=== PATIENT | male | born 1975 | race Asian ===

== ENCOUNTER 2017-07-13 12:38 | Outpatient (CLI) | payer BC | END 2017-07-13 12:39 | disposition home or self-care (01) | LOC: BICRAD 12:38 | PROVIDERS: ATTEND Internal Medicine | DX: R07.9 Chest pain, unspecified (principal); L66.1 Lichen planopilaris | CPT/HCPCS: 36415; 71046; 80053; 80061; 82553; 84443; 84484; 85025; 85652; 86140 ==

== ENCOUNTER 2024-06-27 10:05 | Outpatient (CLI) | payer BC | END 2024-06-27 10:06 | disposition home or self-care (01) | LOC: RAD 10:05 | PROVIDERS: ATTEND Internal Medicine | DX: R06.00 Dyspnea, unspecified (principal) | CPT/HCPCS: 71046 ==

== ENCOUNTER 2025-06-27 11:24 | Outpatient (CLI) | payer BC | END 2025-06-27 11:25 | disposition home or self-care (01) | LOC: RAD 11:24 | PROVIDERS: ATTEND Internal Medicine | DX: R06.00 Dyspnea, unspecified (principal) | CPT/HCPCS: 71046 ==